=== PATIENT | male | born 1950 | race Caucasian/White ===

== ENCOUNTER 2023-11-07 12:13 | Emergency (ER) | payer OTHER | END 2023-11-07 15:50 | disposition home or self-care (01) | LOC: MW.ED 12:13 | DX: G98.8 Other disorders of nervous system (principal); E03.9 Hypothyroidism, unspecified; Z88.8 Allergy status to other drugs, medicaments and biological substances; Z79.899 Other long term (current) drug therapy; Z87.891 Personal history of nicotine dependence | CPT/HCPCS: 70450; 70450-26; 99281; 99285 ==